=== PATIENT | female | born 1965 | race African-American/Black ===

== ENCOUNTER 2021-11-01 10:22 | Day surgery (SDC) | payer OTHER ==
[2021-10-29 09:09] VITALS: BMI 29.7
[2021-11-01 12:53] VITALS: RESP 16
[2021-11-01 13:06] VITALS: BP 122/70; PULSE 66; TEMP 98
== END 2021-11-01 13:30 | disposition home or self-care (01) ==
LOC: FASU-ENDO 10:22
PROVIDERS: ATTEND Internal Medicine Gastroenterology
PROC: 0DBL8ZX Excision of Transverse Colon, Via Natural or Artificial Opening Endoscopic, Diagnostic (ICD-10-PCS; principal; 2021-11-01 12:18)
DX: Z12.11 Encounter for screening for malignant neoplasm of colon (principal); D12.3 Benign neoplasm of transverse colon; K57.30 Diverticulosis of large intestine without perforation or abscess without bleeding
CPT/HCPCS: 88305-TC